=== PATIENT | female | born 1980 | race Two or more races ===

== ENCOUNTER 2022-02-14 08:43 | Emergency (ER) | payer SELFPAY ==
[2022-02-14 09:23] LABS: ANION GAP 10.2 meq/L (7-15)
[2022-02-14] MEDS ORDERED: Phenytoin 100 MG Cap.ER PO ONE (09:27)
[2022-02-14] MEDS: Phenytoin 100 MG Cap.ER PO ONE (09:42)
[2022-02-15] MEDS ORDERED: Phenytoin 100 MG Cap.ER PO ONE (09:31)
== END 2022-02-14 10:00 | disposition home or self-care (01) ==
LOC: LL.ED 08:43
DX: G40.909 Epilepsy, unspecified, not intractable, without status epilepticus (principal); I10 Essential (primary) hypertension; Z79.899 Other long term (current) drug therapy
CPT/HCPCS: 36415; 80053; 83735; 85025; 99284; A9270-GY